=== PATIENT | male | born 1980 | race Caucasian/White ===

== ENCOUNTER → 2020-03-28 | Outpatient (CLI) | payer MEDICARE ==
[~2020-03-28] MED LIST: CARA1TAB2 PO; CIPR500T89 PO; FLAG500T PO; MAPA500T17 PO; NORV2TAB PO; ONDA-1 PO; ONDA-227 PR; ONDA-228 PO; OXYC1TAB23 PO; PERC7.5T12 PO; PROT1TAB2 PO; SIME40DR2 PO; SIME80TA PO; SIMETHICONE PO; ZOFR4SOL PO; no home meds
[2020-03-28 07:23] LABS: FREE T4 1.15 NG/DL (0.76-1.46); THYROID STIMULATING HORMONE 0.953 uIU/ML (0.358-3.740)
--- NOTE | 2020-03-28 08:10 | REP ---
Clinical: Abdominal pain and nausea. Technique: Real time couch scale ultrasound examination using curved array transducer. Findings: Liver and pancreas are normal in contour, size, echogenicity without focal hepatic or pancreatic lesion identified. The gallbladder is normal and without gallstones, wall thickening, or pericholecystic fluid. No biliary ductal dilatation is appreciated and the common bile duct measures 4.6 mm diameter. The right kidney is normal in reniform shape without hydronephrosis and measures 11.4 x 7.1 x 5.3 cm. No ascites in the visualized right upper quadrant. Impression: Normal right upper quadrant ultrasound. Electronically Signed by Gabriel Camacho MD 03/28/2020 08:03 A
--- NOTE | 2020-03-28 10:32 | REP ---
Hepatobiliary scan and gallbladder ejection fraction: History: Nausea. Disease of the gallbladder. Vomiting. Technique: 6.6 mCi of technetium-99m mebrofenin was injected and sequential anterior images are acquired. 65 minutes after the mebrofenin injection, the patient consumed 8 ounces Ensure and an additional 60 minutes of imaging was acquired. Regions of interest are plotted around the gallbladder. Findings: The initial hepatocellular parenchymal uptake phase is normal and homogeneous. Intra- and extra-hepatic bile ducts are labeled by the 10 -minute image. The gallbladder is first labeled on the 10 -minute image. There is normal washout from the liver parenchyma into the gallbladder and small intestine on subsequent images. The gallbladder ejection fraction is 24 %. Values greater than 35 % are considered normal with this technique. Impression: Normal hepatobiliary scan and somewhat decreased gallbladder ejection fraction. Electronically Signed by Wiley Burger MD 03/28/2020 10:23 A
[2020-04-22 14:42] LABS: CHROMOGRANIN A 31.5 ng/mL (0.0-101.8); GASTRIN 19 pg/mL (0-115); TISSUE TRANSGLUTAMINASE IgA <2 U/mL (0-3)
== END ==
LOC: M RAD 06:06
PROVIDERS: ATTEND Internal Medicine Gastroenterology
DX: R10.11 Right upper quadrant pain (principal); R11.2 Nausea with vomiting, unspecified; Z79.899 Other long term (current) drug therapy
CPT/HCPCS: 36415; 76705; 78227; 82784; 82941; 83516; 84439; 84443; 86316; A9537

== ENCOUNTER 2020-04-16 10:25 | Day surgery (SDC) | payer MEDICARE, MEDICAID ==
[~2020-04-16 10:25] MED LIST changes: +propofoL 200 MG/20 ML VIAL ONE
[2020-04-16] MEDS ORDERED: propofoL 200 MG/20 ML VIAL ONE (10:53)
[2020-04-16] MEDS ORDERED: ONDANSETRON 4MG/2ML VIAL ONE (10:53)
[2020-04-16] MEDS ORDERED: propofoL 500 MG/50 ML VIAL ONE (11:02)
== END 2020-04-16 12:00 | disposition home or self-care (01) ==
LOC: M SDC 10:25
PROVIDERS: ATTEND Internal Medicine Gastroenterology
DX: D12.5 Benign neoplasm of sigmoid colon (principal); K64.0 First degree hemorrhoids; K58.0 Irritable bowel syndrome with diarrhea; R19.7 Diarrhea, unspecified; K22.8 Other specified diseases of esophagus; R12 Heartburn; R11.2 Nausea with vomiting, unspecified; Z79.899 Other long term (current) drug therapy; Z87.891 Personal history of nicotine dependence
CPT/HCPCS: 43239; 45380; 45385; 88305; J2405